=== PATIENT | male | born 1990 | race Caucasian/White ===

== ENCOUNTER 2025-05-09 01:01 | Emergency (ER) | payer MEDICAID ==
[~2025-05-09] VITALS: Ht 172.7 cm; Wt 67.7 kg
[2025-05-09 01:26] VITALS: TEMP 98.9
[2025-05-09] MEDS: HYDROCODONE/ACETAMINOPHEN 5-325 MG TABLET PO ONE (04:35)
[2025-05-09] MEDS: KETOROLAC TROMETHAMINE 30 MG/ML VIAL IM ONE (04:35)
[2025-05-09] MEDS ORDERED: LIDO-57 TP (05:07)
[2025-05-09] MEDS ORDERED: TRAM50TA5 PO (05:07)
[2025-05-09 05:41] VITALS: BP 129/67; PULSE 71; RESP 19; O2SAT 98
== END 2025-05-09 05:41 | disposition home or self-care (01) ==
LOC: EMS 01:04
DX: M79.18 Myalgia, other site (principal); I10 Essential (primary) hypertension
CPT/HCPCS: 99283; 96372; J1885